=== PATIENT | male | born 1995 | race Caucasian/White ===

== ENCOUNTER 2024-06-15 11:00 | Emergency (ER) | payer OTHER, SELFPAY ==
[2024-06-15 11:08] VITALS: BP 146/87; PULSE 87; RESP 19; TEMP 37; O2SAT 100; BMI 23.7
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
== END 2024-06-15 11:59 | disposition home or self-care (01) ==
PROVIDERS: Emergency Provider Student in an Organized Health Care Education/Training Program
DX: M54.2 Cervicalgia (principal); M79.601 Pain in right arm; V43.52XA Car driver injured in collision with other type car in traffic accident, initial encounter; Y92.410 Unspecified street and highway as the place of occurrence of the external cause
CPT/HCPCS: 99281

== ENCOUNTER → 2025-01-24 09:59 | Outpatient (CLI) | payer OTHER, SELFPAY ==
[2025-01-24 10:44] LABS: Influenza A - CEPHEID Flu A NEGATIVE (NEGATIVE); Influenza B - CEPHEID Flu B NEGATIVE (NEGATIVE)
[2025-01-24 10:45] LABS: COVID-19 CEPHEID 4-PLEX PCR Negative (Negative)
== END ==
PROVIDERS: Visit Provider Physician Assistant
DX: R05.9 Cough, unspecified (principal); R11.10 Vomiting, unspecified
CPT/HCPCS: 87637

== ENCOUNTER 2025-01-24 10:30 | Inpatient (IN) | payer OTHER, SELFPAY ==
[2025-01-24] VITALS (20 sets, daily range): BP systolic 117–147; BP diastolic 58–97; PULSE 96–124; RESP 17–27; TEMP 36.5–37.7; O2SAT 89–97; BMI 23.1
--- NOTE | 2025-01-24 10:43 | DI.RAD.S_ITS ---
PROCEDURE: XR CHEST 1V INDICATIONS: cough TECHNIQUE: One view of the chest was acquired. COMPARISON: None. FINDINGS: Surgical changes and devices: None. Lungs and pleura: Lungs are clear. No pleural effusions or pneumothorax. Mediastinum: Mediastinal contours appear normal. Heart size is normal. Bones and chest wall: No suspicious bony lesions. Overlying soft tissues appear unremarkable. IMPRESSION: No acute cardiopulmonary abnormality is seen. Dictated by: Marcus Howell M.D. on 01/24/2025 at 11:10 Approved by: Marcus Howell M.D. on 01/24/2025 at 11:10
[2025-01-24 11:04] LABS: Add Manual Diff / Slide Review NO; Hematocrit 38.4 % (41-53); Hemoglobin 13.4 g/dL (13.5-17.5); Lymphocytes Absolute Auto 1000 /uL (1100-4500); Mean Corpuscular HGB Conc 34.9 % (30-36); Mean Corpuscular Hemoglobin 32.1 PG (26-34); Mean Corpuscular Volume 91.9 fL (80-100); Platelet Count 280 X10^3/uL (150-400)
[2025-01-24 11:11] LABS: Alanine Aminotransferase 21 IU/L (<50); Albumin 5.0 g/dL (3.5-5.0); Albumin Globulin Ratio 1.3 (1.0-2.8); Alkaline Phosphatase 67 U/L (38-126); Blood Urea Nitrogen 9 mg/dL (9-20); Calcium 9.7 mg/dL (8.4-10.2); Carbon Dioxide 24 mmol/L (22-32); Chloride 102 mmol/L (98-107); Estimated Glomerular Filt Rate > 60 mL/min (>60); Globulin 4.0 g/dL (1.7-4.1); Glucose 102 mg/dL (70-99); HEMOLYSIS < 15 (0-50); Potassium 4.0 mmol/L (3.4-5.1); Sodium 140 mmol/L (137-145); Total Protein 9.0 g/dL (6.3-8.2)
[2025-01-24 11:23] LABS: Troponin I < 0.012 ng/mL (0.01-0.034)
--- NOTE | 2025-01-24 11:25 | EKG_ITS ---
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
--- NOTE | 2025-01-24 12:49 | ED.SYNCOPE ---
HPI - Syncope <Nir Grossman PA-C - Last Filed: 01/24/25 16:49> General Chief Complaint: Syncope Stated Complaint: Sent from [facility]. Loss of consciousness Time Seen by Provider: 01/24/25 11:53 Source: patient Mode of arrival: Ambulatory Limitations: no limitations History of Present Illness HPI narrative: 29-year-old male with no reported past medical history presents to the ED with 2 weeks of runny nose, cough, congestion. Patient states that he had a 2nd syncopal episode upon awakening this morning. Patient denies fever. Patient was seen in the walk-in clinic 5 days ago, prescribed amoxicillin for ear infection. Patient reports no improvement in symptoms. Patient denies ear pain, however does report left-sided ear fullness. Patient states that he has been unable to sleep due to the constant cough. Cough is productive. Patient denies nausea, however has vomited a few times. Patient states that he has not been able to keep anything down, vomiting frequently when coughing. No abdominal pain, dysuria. Related Data Previous Rx's ?Medication ?Instructions ?Recorded amoxicillin 875 mg-potassium 1 tab PO Q12H 7 days #14 tabs 01/20/25 clavulanate 125 mg tablet Allergies Allergy/AdvReac Type Severity Reaction Status Date / Time No Known Drug Allergies Allergy Verified 01/24/25 10:39 Review of Systems <Nir Grossman PA-C - Last Filed: 01/24/25 16:49> Constitutional Constitutional: Denies chills, Reports fatigue, Denies fever(s), Denies frequent falls, Reports lethargy, Reports poor appetite and Denies weakness Eyes Eyes: Denies change in vision, Denies eye discharge, Denies irritation and Denies loss of vision ENT Ears, Nose, Mouth, and Throat: Denies change in voice, Denies dizziness, Reports nasal congestion, Denies neck pain, Denies sore throat and Denies throat swelling Comments: Ear fullness Cardiovascular Cardiovascular: Denies chest pain, Reports syncope, Denies irregular heart rhythm, Denies lightheadedness, Denies palpitations, Denies dyspnea, Denies dyspnea on exertion and Denies orthopnea Respiratory Respiratory: Reports chest congestion, Reports cough, Denies dyspnea, Denies dyspnea on exertion and Denies wheezing Gastrointestinal Gastrointestinal: Denies abdominal pain, Denies change in bowel habits, Reports diarrhea, Denies nausea and Reports vomiting Musculoskeletal Musculoskeletal: Denies neck pain and Denies numbness Integumentary/Breasts Skin/Breast: Denies pruritus, Denies erythema, Denies rash and Denies wounds Neurologic Neurologic: Denies behavioral changes, Denies confusion, Denies dizziness, Reports syncope, Denies frequent falls, Denies loss of vision, Denies numbness and Denies weakness Psychiatric Psychiatric: Denies anxiety, Denies behavioral changes, Denies confusion, Denies depression, Denies homicidal ideation and Denies suicidal ideation Endocrine Endocrine: Reports fatigue, Denies flushing and Denies palpitations Hematologic/Lymphatic Hematologic/Lymphatic: Denies easy bruising Allergic/Immunologic Allergic/Immunologic: Denies urticaria, Denies throat swelling and Denies wheezing Patient History <Nir Grossman PA-C - Last Filed: 01/24/25 16:49> Social History household members: significant other Smoking Status: Never smoker alcohol intake: current Exam <Nir Grossman PA-C - Last Filed: 01/24/25 16:49> Narrative Exam Narrative: Const General:?cooperative, appearing unwell [facility] Head:?normal to inspection Ears:?hearing grossly normal bilaterally; left tympanum was not visualized due to cerumen impaction; mild erythema of right tympanum. Nose:?external nose normal Face and sinus:?normal facial exam and sinuses nontender Mouth:?oral mucosae normal Throat:?posterior oropharynx normal Eyes General:?appearance normal, both eyes and all related structures Neck Neck:?normal visual inspection and no lymphadenopathy noted Resp Effort & Inspection:?normal respiratory effort Auscultation:? Generalized coarse crackles Cardio Rate:?regular rate Rhythm:?regular rhythm Neuro General:?patient alert, patient awake and patient oriented x3 Initial Vital Signs Initial Vital Signs: Vital Signs Temperature 99.3 F 01/24/25 10:38 Pulse Rate 112 H 01/24/25 10:38 Respiratory Rate 22 01/24/25 10:38 Blood Pressure 147/97 H 01/24/25 10:38 Pulse Oximetry 97 01/24/25 10:38 Oxygen Delivery Method Room Air 01/24/25 10:38 <Alanna Lopez MD - Last Filed: 01/24/25 23:25> Initial Vital Signs Initial Vital Signs: Vital Signs Temperature 99.3 F 01/24/25 10:38 Pulse Rate 112 H 01/24/25 10:38 Respiratory Rate 22 01/24/25 10:38 Blood Pressure 147/97 H 01/24/25 10:38 Pulse Oximetry 97 01/24/25 10:38 Oxygen Delivery Method Room Air 01/24/25 10:38 Course <Nir Grossman PA-C - Last Filed: 01/24/25 16:49> Orders Ordered: ED Orders 01/24/25 15:42 Blood Culture Stat 01/24/25 16:07 Lactate (Lactic Acid) Stat Acetaminophen (Acetaminophen 325 Mg Tablet) 650 mg PO Q6H PRN PRN Reason: Fever/Mild Pain (1-3) Albuterol/Ipratropium (Albuterol/Ipratropium 3 Ml Ampul) 3 ml INH RTQ4HR PRN PRN Reason: Shortness Of Breath Azithromycin (Azithromycin 250 Mg Tablet) 500 mg PO DAILY REBEKAH Sodium Chloride (Normal Saline 0.9%) 1,000 mls @ 100 mls/hr IV CONT REBEKAH Last Admin: 01/24/25 20:57 Dose: 100 mls/hr Documented By: AT Ceftriaxone Sodium 1,000 mg/ (Sodium Chloride) 100 mls @ 200 mls/hr IV Q24H REBEKAH Methylprednisolone (Methylprednisolone Succ 125 Mg/2 Ml Vial) 60 mg IV Q12H REBEKAH Last Admin: 01/24/25 20:56 Dose: 60 mg Documented By: AT Naloxone HCl (Naloxone 0.4 Mg/Ml Vial) 0.2 mg IV Q2MIN PRN PRN Reason: Opiate Reversal Ondansetron HCl (Ondansetron 4 Mg/2 Ml Inj) 4 mg IV Q8HR PRN PRN Reason: Nausea And Vomiting Discontinued Medications Acetaminophen (Acetaminophen 325 Mg Tablet) 975 mg PO NOW ONE Stop: 01/24/25 14:57 Last Admin: 01/24/25 15:12 Dose: 975 mg Documented By: EB Albuterol (Albuterol 2.5 Mg/3 Ml Neb (Adult)) 2.5 mg INH NOW ONE Stop: 01/24/25 13:07 Last Admin: 01/24/25 13:09 Dose: 2.5 mg Documented By: MELIZA Benzonatate (Benzonatate 100 Mg Capsule) 200 mg PO NOW ONE Stop: 01/24/25 13:44 Last Admin: 01/24/25 14:16 Dose: 200 mg Documented By: TAWANA Sodium Chloride (Normal Saline 0.9%) 1,000 mls @ 1,000 mls/hr IV BOLUS ONE Stop: 01/24/25 13:41 Last Infusion: 01/24/25 14:20 Dose: Infused Documented By: Admin: 01/24/25 13:24 Dose: 1,000 mls/hr Documented By: YAMINI Azithromycin 500 mg/ Dextrose 250 mls @ 250 mls/hr IV NOW ONE Stop: 01/24/25 15:03 Last Infusion: 01/24/25 17:11 Dose: Infused Documented By: Admin: 01/24/25 15:44 Dose: 250 mls/hr Documented By: TAWANA Sodium Chloride (Normal Saline 0.9%) 1,000 mls @ 1,000 mls/hr IV BOLUS ONE Stop: 01/24/25 16:06 Last Infusion: 01/24/25 16:44 Dose: Infused Documented By: Admin: 01/24/25 15:12 Dose: 1,000 mls/hr Documented By: TAWANA Ceftriaxone Sodium 2,000 mg/ (Sodium Chloride) 100 mls @ 200 mls/hr IV NOW ONE Stop: 01/24/25 15:24 Last Infusion: 01/24/25 17:43 Dose: Infused Documented By: Admin: 01/24/25 17:09 Dose: 200 mls/hr Documented By: TAWANA Vital Signs Vital signs: Vital Signs - 8 hr 01/24/25 15:30 01/24/25 15:30 01/24/25 16:00 Pulse Rate 117 H Respiratory Rate 18 Blood Pressure 124/83 117/69 Pulse Oximetry 92 Oxygen Delivery Method Room Air Oxygen Flow Rate 01/24/25 16:00 01/24/25 16:30 Pulse Rate 112 H 106 H Respiratory Rate 22 22 Blood Pressure Pulse Oximetry 89 L 91 Oxygen Delivery Method Room Air Nasal Cannula Oxygen Flow Rate 2 <Alanna Lopez MD - Last Filed: 01/24/25 23:25> Orders Ordered: ED Orders 01/24/25 15:42 Blood Culture Stat 01/24/25 16:07 Lactate (Lactic Acid) Stat Acetaminophen (Acetaminophen 325 Mg Tablet) 650 mg PO Q6H PRN PRN Reason: Fever/Mild Pain (1-3) Albuterol/Ipratropium (Albuterol/Ipratropium 3 Ml Ampul) 3 ml INH RTQ4HR PRN PRN Reason: Shortness Of Breath Azithromycin (Azithromycin 250 Mg Tablet) 500 mg PO DAILY REBEKAH Sodium Chloride (Normal Saline 0.9%) 1,000 mls @ 100 mls/hr IV CONT REBEKAH Last Admin: 01/24/25 20:57 Dose: 100 mls/hr Documented By: AT Ceftriaxone Sodium 1,000 mg/ (Sodium Chloride) 100 mls @ 200 mls/hr IV Q24H REBEKAH Methylprednisolone (Methylprednisolone Succ 125 Mg/2 Ml Vial) 60 mg IV Q12H REBEKAH Last Admin: 01/24/25 20:56 Dose: 60 mg Documented By: AT Naloxone HCl (Naloxone 0.4 Mg/Ml Vial) 0.2 mg IV Q2MIN PRN PRN Reason: Opiate Reversal Ondansetron HCl (Ondansetron 4 Mg/2 Ml Inj) 4 mg IV Q8HR PRN PRN Reason: Nausea And Vomiting Discontinued Medications Acetaminophen (Acetaminophen 325 Mg Tablet) 975 mg PO NOW ONE Stop: 01/24/25 14:57 Last Admin: 01/24/25 15:12 Dose: 975 mg Documented By: TAWANA Albuterol (Albuterol 2.5 Mg/3 Ml Neb (Adult)) 2.5 mg INH NOW ONE Stop: 01/24/25 13:07 Last Admin: 01/24/25 13:09 Dose: 2.5 mg Documented By: MELIZA Benzonatate (Benzonatate 100 Mg Capsule) 200 mg PO NOW ONE Stop: 01/24/25 13:44 Last Admin: 01/24/25 14:16 Dose: 200 mg Documented By: EB Sodium Chloride (Normal Saline 0.9%) 1,000 mls @ 1,000 mls/hr IV BOLUS ONE Stop: 01/24/25 13:41 Last Infusion: 01/24/25 14:20 Dose: Infused Documented By: Admin: 01/24/25 13:24 Dose: 1,000 mls/hr Documented By: YAMINI Azithromycin 500 mg/ Dextrose 250 mls @ 250 mls/hr IV NOW ONE Stop: 01/24/25 15:03 Last Infusion: 01/24/25 17:11 Dose: Infused Documented By: Admin: 01/24/25 15:44 Dose: 250 mls/hr Documented By: TAWANA Sodium Chloride (Normal Saline 0.9%) 1,000 mls @ 1,000 mls/hr IV BOLUS ONE Stop: 01/24/25 16:06 Last Infusion: 01/24/25 16:44 Dose: Infused Documented By: Admin: 01/24/25 15:12 Dose: 1,000 mls/hr Documented By: TAWANA Ceftriaxone Sodium 2,000 mg/ (Sodium Chloride) 100 mls @ 200 mls/hr IV NOW ONE Stop: 01/24/25 15:24 Last Infusion: 01/24/25 17:43 Dose: Infused Documented By: Admin: 01/24/25 17:09 Dose: 200 mls/hr Documented By: TAWANA Vital Signs Vital signs: Vital Signs - 8 hr 01/24/25 15:30 01/24/25 15:30 01/24/25 16:00 Pulse Rate 117 H Respiratory Rate 18 Blood Pressure 124/83 117/69 Pulse Oximetry 92 Oxygen Delivery Method Room Air Oxygen Flow Rate 01/24/25 16:00 01/24/25 16:30 Pulse Rate 112 H 106 H Respiratory Rate 22 22 Blood Pressure Pulse Oximetry 89 L 91 Oxygen Delivery Method Room Air Nasal Cannula Oxygen Flow Rate 2 MDM - Syncope <Nir Grossman PA-C - Last Filed: 01/24/25 16:49> Lab Data 01/24/25 10:48 01/24/25 10:48 Labs: Lab Results 01/24/25 01/24/25 Range/Units 10:48 16:07 WBC 8.5 (4.5-11.0) X10^3/uL RBC 4.18 L (4.5-5.9) X10^6/uL Hgb 13.4 L (13.5-17.5) g/dL Hct 38.4 L (41-53) % MCV 91.9 (80-100) fL MCH 32.1 (26-34) PG MCHC 34.9 (30-36) % RDW 12.7 (11.6-14.8) % Plt Count 280 (150-400) X10^3/uL Neut % (Auto) 78.4 H (50-75) % Lymph % (Auto) 11.5 L (25-40) % [place] % (Auto) 9.2 (3-14) % Eos % (Auto) 0.7 L (2-4) % Baso % (Auto) 0.2 (0-2) % Neut # (Auto) 6600 (3859-4314) /uL Lymph # (Auto) 1000 L (4393-4734) /uL [place] # (Auto) 800 (0-900) /uL Eos # (Auto) 100 (0-450) /uL Baso # (Auto) 0 (0-100) /uL D-Dimer 431 (<500) ng/ml Sodium 140 (137-145) mmol/L Potassium 4.0 (3.4-5.1) mmol/L Chloride 102 (98-107) mmol/L Carbon Dioxide 24 (22-32) mmol/L BUN 9 (9-20) mg/dL Creatinine 0.64 L (0.66-1.25) mg/dL Estimated GFR > 60 (>60) mL/min BUN/Creatinine Ratio 14.1 (6-22) Glucose 102 H (70-99) mg/dL Lactate 0.8 (0.7-2.1) mmol/L Calcium 9.7 (8.4-10.2) mg/dL Total Bilirubin 0.4 (0.2-1.3) mg/dL AST 27 (17-59) IU/L ALT 21 (<50) IU/L Alkaline Phosphatase 67 (38-126) U/L Troponin I < 0.012 (0.01-0.034) ng/mL Total Protein 9.0 H (6.3-8.2) g/dL Albumin 5.0 (3.5-5.0) g/dL Globulin 4.0 (1.7-4.1) g/dL Albumin/Globulin Ratio 1.3 (1.0-2.8) MDM Narrative Medical decision making narrative: 29-year-old male with no reported past medical history presents to the ED with 2 weeks of runny nose, cough, congestion. There is concern for otitis media versus bronchitis versus versus this other. Respiratory panel was negative earlier today. Chest x-ray without acute findings. Physical exam is concerning for generalized coarse crackles. RT was consulted, patient treated with albuterol with no improvement. Patient was given benzonatate for cough. Patient was tachycardic in the 110s. Patient given a bolus of saline. Labs unremarkable. Troponin negative. Dimer was negative. CT chest in progress. Will reassess. CT chest shows multifocal opacities in both lungs with possible early developing consolidation in the superior segment of the left lower lobe concerning for multifocal pneumonia. Patient continues to be tachycardic in the 1 teens and tachypneic in the 40s. Patient given 1 L bolus x 2 of saline. Patient also given Tylenol for low-grade fever of 99.8F. Blood cultures and lactate obtained. Patient started on IV azithromycin and ceftriaxone. Labs within normal limit. Lactate within normal limit. Patient is saturating at 97 on 2 L of nasal cannula. Patient's saturation dropped to 91% on room air. Patient further drop down to 88 % on room air with ambulation. Hospitalist Dr. Prabhakar was consulted for admission. He graciously accepts the patient for admission. Discussed the plan and disposition with patient, he is agreeable to the plan. Patient admitted. Medical records reviewed: Yes <Alanna Lopez MD - Last Filed: 01/24/25 23:25> Lab Data Labs: Lab Results 01/24/25 01/24/25 Range/Units 10:48 16:07 WBC 8.5 (4.5-11.0) X10^3/uL RBC 4.18 L (4.5-5.9) X10^6/uL Hgb 13.4 L (13.5-17.5) g/dL Hct 38.4 L (41-53) % MCV 91.9 (80-100) fL MCH 32.1 (26-34) PG MCHC 34.9 (30-36) % RDW 12.7 (11.6-14.8) % Plt Count 280 (150-400) X10^3/uL Neut % (Auto) 78.4 H (50-75) % Lymph % (Auto) 11.5 L (25-40) % [place] % (Auto) 9.2 (3-14) % Eos % (Auto) 0.7 L (2-4) % Baso % (Auto) 0.2 (0-2) % Neut # (Auto) 6600 (3337-0353) /uL Lymph # (Auto) 1000 L (3498-3667) /uL [place] # (Auto) 800 (0-900) /uL Eos # (Auto) 100 (0-450) /uL Baso # (Auto) 0 (0-100) /uL D-Dimer 431 (<500) ng/ml Sodium 140 (137-145) mmol/L Potassium 4.0 (3.4-5.1) mmol/L Chloride 102 (98-107) mmol/L Carbon Dioxide 24 (22-32) mmol/L BUN 9 (9-20) mg/dL Creatinine 0.64 L (0.66-1.25) mg/dL Estimated GFR > 60 (>60) mL/min BUN/Creatinine Ratio 14.1 (6-22) Glucose 102 H (70-99) mg/dL Lactate 0.8 (0.7-2.1) mmol/L Calcium 9.7 (8.4-10.2) mg/dL Total Bilirubin 0.4 (0.2-1.3) mg/dL AST 27 (17-59) IU/L ALT 21 (<50) IU/L Alkaline Phosphatase 67 (38-126) U/L Troponin I < 0.012 (0.01-0.034) ng/mL Total Protein 9.0 H (6.3-8.2) g/dL Albumin 5.0 (3.5-5.0) g/dL Globulin 4.0 (1.7-4.1) g/dL Albumin/Globulin Ratio 1.3 (1.0-2.8) Discharge Plan Departure Patient Disposition: Admitted As Inpatient Clinical Impression: Pneumonia Qualifiers: Pneumonia type: due to unspecified organism Laterality: bilateral Lung location: lower lobe of lung Qualified Code(s): J18.9 - Pneumonia, unspecified organism Admit Date/Time: 01/24/25 16:36 Admit Provider: Elia Jauregui ED Sign-out <Alanna Lopez MD - Last Filed: 01/24/25 23:25> Cosign ED Attending Cosignature Attestation: I was immediately available in the department for consultation throughout this patient's visit. Alanna Lopez MD
[2025-01-24] MEDS: ALBUTEROL 2.5 MG/3 ML NEB (ADULT) INH (13:09)
[2025-01-24] MEDS: SODIUM CHLORIDE 0.9% 1,000 ML 1000 ML IV ×2 (13:24→15:12)
[2025-01-24] MEDS: BENZONATATE 100 MG CAPSULE 200 MG PO (14:16)
--- NOTE | 2025-01-24 14:20 | DI.CT.S_ITS ---
PROCEDURE: CT CHEST WO CON INDICATIONS: ?pna TECHNIQUE: Noncontrast 5 mm thick sections acquired from the pulmonary apices to the posterior costophrenic angles. 1 mm lung window, 5 mm thick coronal and sagittal and 7 mm axial MIP reformats were then acquired. For radiation dose reduction, the following was used: automated exposure control, adjustment of mA and/or kV according to patient size. COMPARISON: [facility], CR, XR CHEST 1V, 01/24/2025, 10:50. FINDINGS: Image quality: Diagnostic. Lower Neck: No enlarged lymph nodes. Thyroid: No thyroid nodules which require sonographic follow up, per consensus guidelines. Axillae: No enlarged lymph nodes. Chest Wall: Unremarkable. Bones: Unremarkable. Lungs and Pleura: No pneumothorax or pleural effusions. Multifocal bronchovascular ground-glass opacities in the left lower lobe, apical right upper lobe, medial segment of the right middle lobe, posterior and lateral segments of the right lower lobe. The opacities are more confluent and consolidative in the superior segment of the left lower lobe. Heart: Heart size is normal. No pericardial effusion. Thoracic Vessels: The aorta and pulmonary arteries demonstrate normal size. Mediastinum and Barbara: No enlarged lymph nodes. Esophagus: No wall thickening. No hiatal hernia. Upper Abdomen: Visualized upper abdomen solid organs and bowel loops appear normal. IMPRESSION: Multifocal opacities in both lungs with possible early developing consolidation in the superior segment of the left lower lobe concerning for multifocal pneumonia. Recommend follow-up chest radiograph in 4-6 weeks to document resolution. Dictated by: Rajat Buckley M.D. on 01/24/2025 at 14:50 Approved by: Rajat Buckley M.D. on 01/24/2025 at 14:53
[2025-01-24] MEDS: ACETAMINOPHEN 325 MG TABLET 975 MG PO (15:12)
[2025-01-24] MEDS: AZITHROMYCIN 500 MG in DEXTROSE 5% IN WATER 250 ML 250 MG IV (15:44)
[2025-01-24 16:29] LABS: Lactate (Lactic Acid) 0.8 mmol/L (0.7-2.1)
[2025-01-24] MEDS: cefTRIAXone 2,000 MG in SODIUM CHLORIDE 0.9% 100 ML 200 MG IV (17:09)
--- NOTE | 2025-01-24 18:03 | CM.DANOTE ---
DCP Assessment Note: Pt is a 29yo male, resident of [place], is admitted for syncopal episode. Pt lives in a house with his partner, Jackie. Pt's Primary Care Provider is Dr. Prem Noel MD at [facility] and insurance is [facility]. Reviewed chart and discussed with multidisciplinary team pt's medical status and initial discharge needs. DCP met w/patient at bedside; introduced self and role. Patient was found in bed, alert and oriented, cooperative with assessment. Pt confirmed living situation, independent and no DME, and good support in partner and family. Pt expressed preference in discharge home when cleared. Plan: Anticipating discharge home when medically cleared and titrated off O2, partner or parents can transport home. CM team will follow closely for coordination of discharge plans. JEAN CLAUDE Espinal Discharge Planning/Care Management CM Discharge Assessment Start: 01/24/25 18:00 Freq: Status: Active Protocol: Document 01/24/25 18:00 MW (Rec: 01/24/25 18:03 MW [id number]) Discharge Planning Assessment Assigned Discharge TAWANNA Smith Grain Operator Provider Dr. Prem Noel MD Insurance [facility] DPOA/Assigned Alfonzo Chavarria, Father Designee Name Contact Information [phone] Advance Directives? No Has Patient been No admitted in last 30 days? Prior Living House Arrangements Household Members significant other Type of Drives own vehicle transporation used prior to admit Independent with ADL Yes 's Is patient alert and Yes oriented? Caregiver for No Another Discharge Plan Home Transportation Girlfriend or Father Arrangement Review Status In Process Please Provide Date 01/24/25 Initial DC Assessment Was Performed Next Review Type Continued Stay Review
--- NOTE | 2025-01-24 18:37 | PC.ADMIT ---
[email or web address] [facility] [address] Admission Note: Pt arrived to room 221 at approximately 1825, ambulatory from stretcher to bed, A&Ox4, room air trial with oxygen 93-98%. Expiratory wheezing throughout. Oriented to room and call light. Provider Dr. Jauregui at bedside. Vitals WDL. Care ongoing. The patient,Ted Chavarria,29 y/o, was given written information regarding hospital policies, unit procedures and contact persons. Patient's smoking status: . Vital Signs - 8 hr 01/24/25 10:38 01/24/25 12:28 01/24/25 12:29 Temperature 99.3 F Pulse Rate 112 H 103 H 108 H Respiratory Rate 22 17 Blood Pressure 147/97 H 139/80 Pulse Oximetry 97 91 91 Oxygen Delivery Method Room Air Nasal Cannula Oxygen Flow Rate 2 Fraction of Inspired Oxygen 01/24/25 12:30 01/24/25 12:30 01/24/25 13:00 Temperature Pulse Rate 103 H Respiratory Rate Blood Pressure 134/79 136/78 Pulse Oximetry 93 Oxygen Delivery Method Oxygen Flow Rate Fraction of Inspired Oxygen 01/24/25 13:00 01/24/25 13:10 01/24/25 13:30 Temperature Pulse Rate 108 H 114 H 118 H Respiratory Rate 22 26 H Blood Pressure Pulse Oximetry 92 95 94 Oxygen Delivery Method Nasal Cannula Nasal Cannula Oxygen Flow Rate 2 2 Fraction of Inspired Oxygen 28 01/24/25 13:30 01/24/25 13:54 01/24/25 14:00 Temperature 99.8 F H Pulse Rate Respiratory Rate Blood Pressure 119/58 L 121/70 Pulse Oximetry Oxygen Delivery Method Oxygen Flow Rate Fraction of Inspired Oxygen 01/24/25 14:00 01/24/25 14:33 01/24/25 14:34 Temperature Pulse Rate 115 H 124 H Respiratory Rate 22 Blood Pressure 131/86 Pulse Oximetry 97 95 Oxygen Delivery Method Nasal Cannula Nasal Cannula Oxygen Flow Rate 2 2 Fraction of Inspired Oxygen 01/24/25 14:34 01/24/25 15:00 01/24/25 15:00 Temperature Pulse Rate 122 H 118 H Respiratory Rate 27 H 22 Blood Pressure 127/75 Pulse Oximetry 96 96 Oxygen Delivery Method Room Air Room Air Oxygen Flow Rate Fraction of Inspired Oxygen 01/24/25 15:30 01/24/25 15:30 01/24/25 16:00 Temperature Pulse Rate 117 H Respiratory Rate 18 Blood Pressure 124/83 117/69 Pulse Oximetry 92 Oxygen Delivery Method Room Air Oxygen Flow Rate Fraction of Inspired Oxygen 01/24/25 16:00 01/24/25 16:30 01/24/25 17:00 Temperature Pulse Rate 112 H 106 H 103 H Respiratory Rate 22 22 19 Blood Pressure Pulse Oximetry 89 L 91 92 Oxygen Delivery Method Room Air Nasal Cannula Oxygen Flow Rate 2 Fraction of Inspired Oxygen 01/24/25 17:30 01/24/25 17:30 01/24/25 17:36 Temperature Pulse Rate 100 H Respiratory Rate 20 Blood Pressure 122/69 Pulse Oximetry 89 L 92 Oxygen Delivery Method Nasal Cannula Nasal Cannula Oxygen Flow Rate 2 3 Fraction of Inspired Oxygen 01/24/25 18:00 01/24/25 18:00 Temperature Pulse Rate 96 H Respiratory Rate 20 Blood Pressure 126/74 Pulse Oximetry 93 Oxygen Delivery Method Nasal Cannula Oxygen Flow Rate 3 Fraction of Inspired Oxygen
--- NOTE | 2025-01-24 18:58 | P.HP_ITS ---
History of Present Illness History of Present Illness Date Patient Seen: 01/24/25 Chief complaint: Sent from [facility]. Loss of consciousness Narrative: Chief complaint: Pneumonia with hypoxia and shortness for breath History of present illness: 29-year-old with history of bronchitis and pneumonia as a child and teenager with persistent cough shortness for breath came to the emergency room for evaluation Imaging demonstrates a left lower lobe pneumonia with hypoxia on room air The patient admitted for community-acquired pneumonia Review of systems: Did have sweats and chills at night No chest pain or palpitations Dyspnea with exertion No nausea vomiting Physical exam: Young male in no acute distress but appearing ill HEENT unremarkable Heart rhythm regular Lungs with left posterior mid lung field crackles and rhonchi and wheezes Abdomen benign Extremities no edema Assessment and plan: Community-acquired pneumonia with hypoxic respiratory failure and bronchospasm * Ceftriaxone azithromycin * Supplemental oxygen * Solu-Medrol DuoNeb Disposition: * Anticipate 2-3 days of hospitalization Time based billing: * 55 minutes were involved in the evaluation of this patient including [id number] evaluation physical examination review imaging objective laboratory data and discussion with emergency provider [facility] Social History household members: significant other Meds Home Medications and Allergies Home Medications ?Medication ?Instructions ?Recorded ?Confirmed ?Type amoxicillin 875 mg-potassium 1 tab PO Q12H 7 days #14 tabs 01/20/25 01/24/25 Rx clavulanate 125 mg tablet Allergies Allergy/AdvReac Type Severity Reaction Status Date / Time No Known Drug Allergies Allergy Verified 01/24/25 10:39 Exam Vital Signs (past 8 hours): - 01/24/25 12:28 01/24/25 12:29 01/24/25 12:30 Temperature Pulse Rate 103 H 108 H Respiratory Rate 17 Blood Pressure 139/80 134/79 Pulse Oximetry 91 91 Oxygen Delivery Method Nasal Cannula Oxygen Flow Rate 2 Fraction of Inspired Oxygen 01/24/25 12:30 01/24/25 13:00 01/24/25 13:00 Temperature Pulse Rate 103 H 108 H Respiratory Rate 22 Blood Pressure 136/78 Pulse Oximetry 93 92 Oxygen Delivery Method Oxygen Flow Rate Fraction of Inspired Oxygen 01/24/25 13:10 01/24/25 13:30 01/24/25 13:30 Temperature Pulse Rate 114 H 118 H Respiratory Rate 26 H Blood Pressure 119/58 L Pulse Oximetry 95 94 Oxygen Delivery Method Nasal Cannula Nasal Cannula Oxygen Flow Rate 2 2 Fraction of Inspired Oxygen 28 01/24/25 13:54 01/24/25 14:00 01/24/25 14:00 Temperature 99.8 F H Pulse Rate 115 H Respiratory Rate Blood Pressure 121/70 Pulse Oximetry 97 Oxygen Delivery Method Nasal Cannula Oxygen Flow Rate 2 Fraction of Inspired Oxygen 01/24/25 14:33 01/24/25 14:34 01/24/25 14:34 Temperature Pulse Rate 124 H 122 H Respiratory Rate 22 27 H Blood Pressure 131/86 Pulse Oximetry 95 96 Oxygen Delivery Method Nasal Cannula Oxygen Flow Rate 2 Fraction of Inspired Oxygen 01/24/25 15:00 01/24/25 15:00 01/24/25 15:30 Temperature Pulse Rate 118 H Respiratory Rate 22 Blood Pressure 127/75 124/83 Pulse Oximetry 96 Oxygen Delivery Method Room Air Room Air Oxygen Flow Rate Fraction of Inspired Oxygen 01/24/25 15:30 01/24/25 16:00 01/24/25 16:00 Temperature Pulse Rate 117 H 112 H Respiratory Rate 18 22 Blood Pressure 117/69 Pulse Oximetry 92 89 L Oxygen Delivery Method Room Air Room Air Oxygen Flow Rate Fraction of Inspired Oxygen 01/24/25 16:30 01/24/25 17:00 01/24/25 17:30 Temperature Pulse Rate 106 H 103 H Respiratory Rate 22 19 Blood Pressure 122/69 Pulse Oximetry 91 92 Oxygen Delivery Method Nasal Cannula Oxygen Flow Rate 2 Fraction of Inspired Oxygen 01/24/25 17:30 01/24/25 17:36 01/24/25 18:00 Temperature Pulse Rate 100 H Respiratory Rate 20 Blood Pressure 126/74 Pulse Oximetry 89 L 92 Oxygen Delivery Method Nasal Cannula Nasal Cannula Oxygen Flow Rate 2 3 Fraction of Inspired Oxygen 01/24/25 18:00 Temperature Pulse Rate 96 H Respiratory Rate 20 Blood Pressure Pulse Oximetry 93 Oxygen Delivery Method Nasal Cannula Oxygen Flow Rate 3 Fraction of Inspired Oxygen Fraction of Inspired Oxygen 28 SaO2/FiO2 Ratio 339 Oxygen Delivery Method Nasal Cannula Oxygen Flow Rate 3 Objective Labs 01/24/25 10:48 01/24/25 10:48 Labs: Laboratory Results - last 24 hr 01/24/25 01/24/25 10:48 16:07 WBC 8.5 RBC 4.18 L Hgb 13.4 L Hct 38.4 L MCV 91.9 MCH 32.1 MCHC 34.9 RDW 12.7 Plt Count 280 Neut % (Auto) 78.4 H Lymph % (Auto) 11.5 L [place] % (Auto) 9.2 Eos % (Auto) 0.7 L Baso % (Auto) 0.2 Neut # (Auto) 6600 Lymph # (Auto) 1000 L [place] # (Auto) 800 Eos # (Auto) 100 Baso # (Auto) 0 D-Dimer 431 Sodium 140 Potassium 4.0 Chloride 102 Carbon Dioxide 24 BUN 9 Creatinine 0.64 L Estimated GFR > 60 BUN/Creatinine Ratio 14.1 Glucose 102 H Lactate 0.8 Calcium 9.7 Total Bilirubin 0.4 AST 27 ALT 21 Alkaline Phosphatase 67 Troponin I < 0.012 Total Protein 9.0 H Albumin 5.0 Globulin 4.0 Albumin/Globulin Ratio 1.3 Assessment & Plan Time-Based Coding :: [TOTAL MINUTES] spent with patient and on the chart (including review of chart, obtaining history, exam, reviewing outside data, placing orders, documenting exam and treatment plan, and counseling patient) on [DATE].
[2025-01-24] MEDS: methylPREDNISolone succ 125 MG/2 ML VIAL 60 MG IV (20:56)
[2025-01-24] MEDS: SODIUM CHLORIDE 0.9% 1,000 ML 100 ML IV (20:57)
[2025-01-25] VITALS (7 sets, daily range): BP systolic 109–143; BP diastolic 63–81; PULSE 68–98; RESP 15–22; TEMP 36.4–36.9; O2SAT 93–97
[2025-01-25] MEDS: methylPREDNISolone succ 125 MG/2 ML VIAL 60 MG IV ×2 (06:03→18:46)
[2025-01-25] MEDS: SODIUM CHLORIDE 0.9% 1,000 ML 100 ML IV (06:04)
[2025-01-25 07:00] LABS: Add Manual Diff / Slide Review NO; Hematocrit 33.6 % (41-53); Hemoglobin 11.8 g/dL (13.5-17.5); Lymphocytes Absolute Auto 700 /uL (1100-4500); Mean Corpuscular HGB Conc 35.1 % (30-36); Mean Corpuscular Hemoglobin 32.5 PG (26-34); Mean Corpuscular Volume 92.7 fL (80-100); Platelet Count 267 X10^3/uL (150-400)
[2025-01-25 07:22] LABS: Blood Urea Nitrogen 6 mg/dL (9-20); Calcium 9.4 mg/dL (8.4-10.2); Carbon Dioxide 24 mmol/L (22-32); Chloride 104 mmol/L (98-107); Estimated Glomerular Filt Rate > 60 mL/min (>60); Glucose 151 mg/dL (70-99); HEMOLYSIS < 15 (0-50); Potassium 4.5 mmol/L (3.4-5.1); Sodium 139 mmol/L (137-145)
[2025-01-25] MEDS: AZITHROMYCIN 250 MG TABLET 500 MG PO (09:50)
--- NOTE | 2025-01-25 10:55 | DIET.CONS ---
Dietary Consultation Note Admission Date: 01/24/2025 16:36 Assessment: 29 y M admitted for pneumonia. Dietitian screened for MNA score. Met with pt at bedside. Reports lost 8 lb in 4 days. Weight at [facility] was 179# and weight here was 171# both on stand up scales with nothing in pockets per pt. Reports unable to tolerate any PO intakes without throwing it up since , 4 days ago. Before then for the last 2-3 months has had reduced PO intakes going from 2-3 meals per day to 1 meal that is >25% less than usual amount. Has not noted any weight changes up until these past 4 days though. UBW 175-180#. Tried having breakfast this morning and reports throwing it all back up. Is wanting to try lunch again. NFPE performed with no significant results. Ht: 182.88 cm Wt: 77.564 kg BMI: 23.1 UBW: 175-180# per pt. Per EMR 81.25 kg on 01/20/25 (-4.5% weight loss in 4 days), 77.111 kg on 06/15/24 Last BM: () MNA: 8 Oracio Score: 23 Diet: 01/24/25 Dinner General (Regular) Diet Diet Modifications: Labs: RBC 3.62 X10^6/uL (4.5-5.9) L 01/25/25 06:34 Hgb 11.8 g/dL (13.5-17.5) L 01/25/25 06:34 Hct 33.6 % (41-53) L 01/25/25 06:34 Creatinine 0.53 mg/dL (0.66-1.25) L 01/25/25 06:34 Lactate 0.8 mmol/L (0.7-2.1) 01/24/25 16:07 Nutrition Diagnosis: Unintentional weight loss r/t inadequate oral intakes and vomiting aeb 4.5% weight loss in 5 days, severe Interventions: -Discussed easy to tolerate foods while sick -Ensure clear added to lunch if unable to tolarate meal EER: [id number] kcals (25-30 kcals/kg) 65-75 g protein (.8-1 g/kg per age vs 16% kcals) Monitoring/Evaluations: PO tolerance Electronically Signed by: Clarissa Bright 01/25/25 10:55 Clinical Dietitian [address] [address]
--- NOTE | 2025-01-25 11:50 | CM.DPNOTE ---
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 potentially tomorrow for another day of IV abx no new CM needs identified at this time. P: home with partner when medically stable. will continue to follow as needed for DCP Coordination TAWANNA Escalante
--- NOTE | 2025-01-25 14:47 | PC.NURSE ---
Patient asks this RN if he can have something to help with his diarrhea, with more information gathered he reports he is now having watery stools x 4 after eating lunch and says he has diarrhea after eating breakfast too. Patient states this started a bit when he started po antibiotics, he states he takes prebiotics and probiotics at home. Hat placed in toilet and patient instructed to save stool if happens again. Message sent to Dr Jauregui with update, continue to monitor.
--- NOTE | 2025-01-25 16:27 | P.PN_ITS ---
Subjective Subjective Date Patient Seen: 01/25/25 Interval history: Chief complaint: Pneumonia with hypoxia and shortness for breath History of present illness: 29-year-old with history of bronchitis and pneumonia as a child and teenager with persistent cough shortness for breath came to the emergency room for evaluation Imaging demonstrates a left lower lobe pneumonia with hypoxia on room air The patient admitted for community-acquired pneumonia Hospital course: 01/25: Slept better cough productive of green phlegm less dyspnea less short of breath with activity no rigors or night sweats Review of systems: Did have sweats and chills at night No chest pain or palpitations Dyspnea with exertion No nausea vomiting Physical exam: Young male in no acute distress but appearing ill HEENT unremarkable Heart rhythm regular Lungs with left posterior mid lung field crackles and rhonchi and wheezes Abdomen benign Extremities no edema Assessment and plan: Community-acquired pneumonia with hypoxic respiratory failure and bronchospasm * Ceftriaxone azithromycin * Supplemental oxygen * Solu-Medrol DuoNeb Disposition: * Anticipate 24-48 hours more of hospitalization probably 24 Time based billing: * 35 minutes were involved in the evaluation of this patient including [id number] evaluation physical examination review imaging objective laboratory data and discussion with emergency provider Exam Vital Signs (past 8 hours): - 01/25/25 11:00 01/25/25 12:26 Temperature 97.6 F 98.0 F Pulse Rate 68 80 Respiratory Rate 15 15 Blood Pressure 125/75 126/63 Pulse Oximetry 97 96 Oxygen Flow Rate 0 0 Fraction of Inspired Oxygen 28 SaO2/FiO2 Ratio 339 Oxygen Delivery Method Room Air Oxygen Flow Rate 0 Objective Labs 01/25/25 06:34 01/25/25 06:34 Labs: Laboratory Results - last 24 hr 01/24/25 01/25/25 16:07 06:34 WBC 5.3 RBC 3.62 L Hgb 11.8 L Hct 33.6 L MCV 92.7 MCH 32.5 MCHC 35.1 RDW 12.5 Plt Count 267 Neut % (Auto) 80.8 H Lymph % (Auto) 13.8 L [place] % (Auto) 5.3 Eos % (Auto) 0.0 L Baso % (Auto) 0.1 Neut # (Auto) 4300 Lymph # (Auto) 700 L [place] # (Auto) 300 Eos # (Auto) 0 Baso # (Auto) 0 Sodium 139 Potassium 4.5 Chloride 104 Carbon Dioxide 24 BUN 6 L Creatinine 0.53 L Estimated GFR > 60 BUN/Creatinine Ratio 11.3 Glucose 151 H Lactate 0.8 Calcium 9.4 PFSH Social History household members: significant other Smoking Status: Never smoker alcohol intake: current Assessment & Plan Time-Based Coding :: [TOTAL MINUTES] spent with patient and on the chart (including review of chart, obtaining history, exam, reviewing outside data, placing orders, documenting exam and treatment plan, and counseling patient) on [DATE].
[2025-01-25 17:19] LABS: Clostridium Difficile Tox PCR Negative for C. diff (Negative)
--- NOTE | 2025-01-25 17:23 | PC.NURSE ---
Stool sample back negative for CDIFF, prn order for imodium received from Dr Jauregui.
[2025-01-25] MEDS: LOPERAMIDE 2 MG CAPSULE PO (17:45)
[2025-01-25] MEDS: PSEUDOEPHEDRINE 30 MG TABLET PO (18:46)
[2025-01-26] MEDS: methylPREDNISolone succ 125 MG/2 ML VIAL 60 MG IV (07:05)
[2025-01-26 09:00] VITALS: BP 141/95; PULSE 99; RESP 18; TEMP 36.6; O2SAT 96
[2025-01-26] MEDS: AZITHROMYCIN 250 MG TABLET 500 MG PO (09:46)
--- NOTE | 2025-01-26 10:34 | DIET.PN1 ---
Dietary Progress Note Assessment: f/u Tolerating diet again. Tolerated Ensure clear. Also reports was tolerating protein drink at home in morning. Discussed nutrition tips for nausea and maintaining adequate intakes to prevent weight loss. No further nutritional interventions needed. Ht: 182.88 cm Wt: 77.564 kg BMI: 23.1 Last BM: 01/25/25 (01/25/25 16:00) MNA: 8 Oracio Score: 23 Diet: 01/24/25 Dinner General (Regular) Diet Diet Modifications: Nutrition Percent Meal Consumed 100% 01/26/25 09:00 Percent Meal Consumed 100% 01/25/25 18:00 Percent Meal Consumed 100% 01/25/25 14:51 Percent Meal Consumed 100% 01/25/25 10:30 Labs: RBC 3.62 X10^6/uL (4.5-5.9) L 01/25/25 06:34 Hgb 11.8 g/dL (13.5-17.5) L 01/25/25 06:34 Hct 33.6 % (41-53) L 01/25/25 06:34 Creatinine 0.53 mg/dL (0.66-1.25) L 01/25/25 06:34 Lactate 0.8 mmol/L (0.7-2.1) 01/24/25 16:07 Electronically Signed by: Clarissa Bright 01/26/25 10:34 Clinical Dietitian [address] [address]
--- NOTE | 2025-01-26 11:10 | CM.DPNOTE ---
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 per provider in morning rounds, will dc home today with PO meds. no new CM needs identified at this time P: dc home with family support and OP f/u as needed. no identified barriers to safe dc home. will continue to follow as needed in case any additional needs should arise TAWANNA Escalante
--- NOTE | 2025-01-26 12:12 | P.DS_ITS ---
History of Present Illness History of Present Illness Date Patient Seen: 01/26/25 Chief complaint: Sent from [facility]. Loss of consciousness Narrative: Chief complaint: Pneumonia with hypoxia and shortness for breath History of present illness: 29-year-old with history of bronchitis and pneumonia as a child and teenager with persistent cough shortness for breath came to the emergency room for evaluation Imaging demonstrates a left lower lobe pneumonia with hypoxia on room air Hospital course: Patient's oxygenation improved his cough became productive of green phlegm Review of systems: Did have sweats and chills at night No chest pain or palpitations Dyspnea with exertion No nausea vomiting Physical exam: Young male in no acute distress with bronchitic cough HEENT unremarkable Heart rhythm regular Lungs with left posterior mid lung field crackles and rhonchi and wheezes and air trapping Abdomen benign Extremities no edema Assessment and plan: Community-acquired pneumonia with hypoxic respiratory failure and bronchospasm * Ceftriaxone azithromycin * Supplemental oxygen * Solu-Medrol DuoNeb Disposition: * Discharge to home * Return to work FridayJanuary 31 * 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 and must be cleared by physician to not be wheezing or air trapping prior to resuming scuba diving to avoid barotrauma to the lung Time based billing: * 35 minutes were involved in the evaluation of this patient including [id number] evaluation physical examination review imaging objective laboratory data and discussion with emergency provider Discharge Providers Provider Date of admission: 01/24/25 16:36 Discharge Date: 01/26/25 Primary care physician: Prem Noel MD Discharge provider: Elia Jauregui MD Exam Vital Signs (past 8 hours): - 01/26/25 09:00 Temperature 97.9 F Pulse Rate 99 H Respiratory Rate 18 Blood Pressure 141/95 H Pulse Oximetry 96 Oxygen Flow Rate 0 Fraction of Inspired Oxygen 28 SaO2/FiO2 Ratio 339 Oxygen Delivery Method Room Air Oxygen Flow Rate 0 Objective Labs 01/25/25 06:34 01/25/25 06:34 Labs: Laboratory Results - last 24 hr 01/25/25 15:54 C. difficile Tox (PCR) Negative for c[facility] diff [facility] Social History household members: significant other Smoking Status: Never smoker alcohol intake: current Discharge Plan Discharge Plan Patient Disposition: Home Discharge orders & Medications Prescriptions: New pseudoephedrine HCl 30 mg Tablet 30 mg PO Q6HR PRN (Reason: Congestion) Qty: 1 0RF codeine-guaifenesin 10-100 mg/5 mL Liquid 10 ml PO Q6H PRN (Reason: Cough) Qty: 240 0RF prednisone 20 mg Tablet 20 mg PO DAILY Qty: 7 0RF cefdinir 300 mg Capsule 300 mg PO BID Qty: 14 0RF albuterol sulfate [Ventolin HFA] 90 mcg/actuation HFA aerosol inhaler 1 inh inhalation QID Qty: 8.5 2RF Discontinued amoxicillin-pot clavulanate 875-125 mg tablet 1 tab PO Q12H 7 Days Qty: 14 0RF Follow up/Referrals: Prem Noel MD [Primary Care Provider, Internal Medicine] Visit Report/Discharge Packet Stand Alone Forms: Patient Portal/API, Stroke Signs & Symptoms Discharge Data Primary Care Provider: Prem Noel
--- NOTE | 2025-01-26 12:48 | PC.NURSE ---
IV removed. D/c packet reviewed with pt, including new Rx's. Pt confirmed that he had all of his belongings. Pt exited via w/c with DIVE SUPERVISOR to private vehicle.
== END 2025-01-26 12:50 | disposition home or self-care (01) | DRG 193 ==
LOC: ED 15:34 → AC 16:36
PROVIDERS: Emergency Medicine; Internal Medicine; Admitting Provider Internal Medicine; Emergency Provider Student in an Organized Health Care Education/Training Program; PCP Internal Medicine; Referring Provider Student in an Organized Health Care Education/Training Program; Visit Provider Internal Medicine
DX: J18.9 Pneumonia, unspecified organism (principal); J96.91 Respiratory failure, unspecified with hypoxia; R11.10 Vomiting, unspecified; J98.01 Acute bronchospasm
CPT/HCPCS: 36415; 71045; 71250; 80048; 80053; 83605; 84484; 85025; 85379; 87040; 87493; 87637; 93005; 94640; 96361; 96365; 96367; 99284; 99285; J0696; J2919; J7030; J7050; J7060; J7613